=== PATIENT | female | born 1980 | race Asian ===

== ENCOUNTER → 2016-04-14 | Outpatient (CLI) | payer OTHER ==
[~2016-04-14] MED LIST: METHACHOLINE KIT (J7674) INH ONE
== END ==
LOC: M CARPUL 12:44
PROVIDERS: ATTEND Physician Assistant
DX: R06.00 Dyspnea, unspecified (principal)

== ENCOUNTER 2016-05-21 11:59 | Emergency (ER) | payer OTHER ==
[2016-05-21] MEDS ORDERED: NORCO, ANEXSIA 5/325MG TABLET (HYDROcodone/ACETAMINOPHEN) As Ordered ONE (12:48)
--- NOTE | 2016-05-21 12:59 | EDDOCDS ---
Physician Documentation [facility] Name: Taylor Perez Age: 35 yrs Sex: Female : 1980 Arrival Date: 05/21/2016 Time: 11:59 Bed TR8 Private MD: CEDRIC Avery Disposition: 05/21/16 12:43 Discharged to Home/Self Care. Impression: Influenza due to unidentified influenza virus. - Condition is Stable. - Discharge Instructions: Influenza Adult. - Medication Reconciliation form. - Follow up: CEDRIC Avery; When: 2 - 3 days; Reason: Wound/Symptom Recheck, Recheck today's complaints, Worsening of conditions, Continuance of care. - Problem is new. - Symptoms are unchanged. - Notes: Please take your vicodin as discussed. Historical: - Allergies: Ambiensleep walks; meloxicammakes her hyper; Plaquenilworsened the pain; No TB Shot; stone fruit; environmental allergies; - Home Meds: 1. pregabalin 200 mg Oral cap 1 cap 3 times per day 2. Diovan HCT 80-12.5 mg Oral tab 3. montelukast 10 mg oral tab 1 tab once daily 4. Claritin 10 mg Oral tab 1 tab once daily 5. metformin 500 mg Oral tab 1 tab QD for Polycystic Ovarian Syndrome 6. control 7. Advair Diskus 230 Inhl 2 puff 2 times per day 8. tramadol 50 mg Oral tab 1 tab prn (Last dose: 05/20/2016) 9. Tylenol 325 mg oral tab 1 tab prn 10. amitriptyline 100 mg Oral tab 1 tab once daily 11. epi pen as needed 12. ProAir HFA 90 mcg/actuation inhalation HFAA 2 puffs as needed 13. Nasonex 50 mcg/actuation Nasal spry 2 sprays as needed 14. Motrin 800 mg Oral tab 1 tab as needed 15. meclizine 25 mg Oral tab as needed 16. Patanol 0.1 % Opht drop 1 drop as needed 17. valacyclovir 1 gram Oral tab 1 tab once daily prn 18. Vitamin D Oral 1000 unit daily 19. Lidoderm 5 %(700 mg/patch) Topical ptmd 1 patch as needed 20. ranitidine HCl 150 mg Oral cap once daily - PMHx: Asthma; Arthritis; Environmental allergies; Fibromyalgia; genital herpes; Hypertension; insomnia; Migraine Headaches; PCOS; Tuberculosis; Vertigo; GERD; - PSHx: right shoulder; Carpal Tunnel Repair- Right; wisdom teeth; Carpal Tunnel Repair- Left; - Social history: Smoking status: Patient states former smoker of tobacco. No barriers to communication noted, The patient speaks fluent French, Speaks appropriately for age. - Family history: Not pertinent. - : The pt / caregiver states he / she is not on anticoagulants. Home medication list is obtained from the patient. - Exposure Risk Screening:: None identified. 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 Vital Signs: 12:00 BP 158 / 91; Pulse 93; Resp 18; Temp 98.0(T); Pulse Ox 99% on R/A; Weight 83.91 kg / dem1 184.99 lbs (R); Height 5 ft. 2 in. (157.48 cm); 12:17 BP 148 / 96 RA Sitting (man/lg); jb5 12:00 Body Mass Index 33.84 (83.91 kg, 157.48 cm) dem1 MDM: 12:37 Financial registration complete. lg 12:43 HYDROcodone-acetaminophen 5 mg-325 mg 1 tabs PO once ordered. cc10 12:52 [facility] Payment Agreement was scanned into [employer] and attached to record. lg Administered Medications: 12:50 Drug: HYDROcodone-acetaminophen 1 tabs [hydrocodone 5 mg-acetaminophen 325 mg tablet (1 srm tabs)] Route: PO; Signatures: Heather Olivas RN RN srm Wendy Boyce, Jaciel Grissom Felipe Crooks PA-C PA-C cc10 The chart was reviewed and I authenticate all verbal orders and agree with the evaluation and treatment provided.Attachments: 12:52 [facility] Payment Agreement lg MTDD
--- NOTE | 2016-05-21 12:59 | EDDOCDS ---
Nurse's Notes [facility] Name: Taylor Perez Age: 35 yrs Sex: Female : 1980 Arrival Date: 05/21/2016 Time: 11:59 Bed TR8 Private MD: Gena [facility] Diagnosis: Influenza due to unidentified influenza virus Presentation: 05/21 12:02 Presenting complaint: Patient states: feel weak started about 20 mins ago. got hot srm flashes and heating up then entire body started hurting. diarrhea this am before these symptoms started. Adult Sepsis Screening: The patient does not have new or worsening altered mentation. Patient's respiratory rate is less than 22. Systolic blood pressure is greater than 100. Patient has a qSOFA score of 0- Negative Sepsis Screen. Suicide/Homicide risk assessment- the patient denies having any suicidal and/or homicidal ideations and does not present with any other emotional, behavioral or mental health complaints. Status: The patient is a dependent. Transition of care: patient was not received from another setting of care. 12:02 Acuity: HAL Level 3 srm 12:02 Method Of Arrival: Walkin/Carried/Asstd srm Triage Assessment: 12:09 General: Appears in no apparent distress, Behavior is appropriate for age, cooperative. srm Pain: Pain currently is 8 out of 10 on a pain scale. HIV screening NA for this visit Offered previously. 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 pregabalin 200 mg Oral cap 1 cap 3 times per day 2. Diovan HCT 80-12.5 mg Oral tab 3. montelukast 10 mg oral tab 1 tab once daily 4. Claritin 10 mg Oral tab 1 tab once daily 5. metformin 500 mg Oral tab 1 tab QD for Polycystic Ovarian Syndrome 6. control 7. Advair Diskus 230 Inhl 2 puff 2 times per day 8. tramadol 50 mg Oral tab 1 tab prn (Last dose: 05/20/2016) 9. Tylenol 325 mg oral tab 1 tab prn 10. amitriptyline 100 mg Oral tab 1 tab once daily 11. epi pen as needed 12. ProAir HFA 90 mcg/actuation inhalation HFAA 2 puffs as needed 13. Nasonex 50 mcg/actuation Nasal spry 2 sprays as needed 14. Motrin 800 mg Oral tab 1 tab as needed 15. meclizine 25 mg Oral tab as needed 16. Patanol 0.1 % Opht drop 1 drop as needed 17. valacyclovir 1 gram Oral tab 1 tab once daily prn 18. Vitamin D Oral 1000 unit daily 19. Lidoderm 5 %(700 mg/patch) Topical ptmd 1 patch as needed 20. ranitidine HCl 150 mg Oral cap once daily - PMHx: Asthma; Arthritis; Environmental allergies; Fibromyalgia; genital herpes; Hypertension; insomnia; Migraine Headaches; PCOS; Tuberculosis; Vertigo; GERD; - PSHx: right shoulder; Carpal Tunnel Repair- Right; wisdom teeth; Carpal Tunnel Repair- Left; - Social history: Smoking status: Patient states former smoker of tobacco. No barriers to communication noted, The patient speaks fluent Romansh, Speaks appropriately for age. - Family history: Not pertinent. - : The pt / caregiver states he / she is not on anticoagulants. Home medication list is obtained from the patient. - Exposure Risk Screening:: None identified. Screenin:55 Screening information is obtained from the patient. Fall risk: No risks identified. srm Assistance ADL's: requires no assistance with activities of daily living. Abuse/DV Screen: The patient / caregiver reports he/she is: not in a situation that causes fear, pain or injury. Nutritional screening: No deficits noted. Advance Directives: There is no active DNR order. home support is adequate. Assessment: 12:55 General: Appears in no apparent distress, Behavior is appropriate for age, cooperative. srm General: achey all over. Neurological: No deficits noted. Respiratory: No deficits noted. Derm: No deficits noted. Vital Signs: 12:00 BP 158 / 91; Pulse 93; Resp 18; Temp 98.0(T); Pulse Ox 99% on R/A; Weight 83.91 kg (R); dem1 Height 5 ft. 2 in. (157.48 cm); 12:17 BP 148 / 96 RA Sitting (man/lg); jb5 12:00 Body Mass Index 33.84 (83.91 kg, 157.48 cm) dem1 Vitals: 12:00 Log In Time: May 21, 2016 at 11:58. dem1 ED Course: 12:00 Patient visited by Perla Moreno. dem1 12:00 Gena [facility] is Private Physician. dem1 12:00 Patient moved to Waiting dem1 12:02 Patient visited by Perla Moreno. dem1 12:02 Patient moved to Pre RCE dem1 12:04 Triage Initiated srm 12:16 Patient moved to Triage 1 srm 12:17 Patient visited by Brianna Hathaway PCA. jb5 12:35 Felipe Crooks PA-C is PHCP. cc10 12:35 Marcos Charlton MD is Attending Physician. cc10 12:35 Patient visited by Felipe Crooks PA-C. cc10 12:35 Patient visited by Felipe Crooks PA-C. cc10 12:43 Gena [facility] is Referral Physician. cc10 12:52 [facility] Payment Agreement was scanned into [employer] and attached to record. lg 12:55 Patient moved to TR8 [facility] 12:55 The patient / caregiver is instructed regarding the plan of care and ED course. srm Accompanied by Significant Other, Patient has correct armband on for positive identification. 12:55 No IV's were initiated during this patient's visit. No procedures done that require srm assistance. Administered Medications: 12:50 Drug: HYDROcodone-acetaminophen 1 tabs [hydrocodone 5 mg-acetaminophen 325 mg tablet (1 srm tabs)] Route: PO; Order Results: There are currently no results for this order. Outcome: 12:43 Discharge ordered by Provider. cc10 12:55 Discharge Assessment: patient administered narcotics - no. The following High Risk srm Discharge criteria are identified: None. Discharged to home ambulatory, with significant other. Condition: good Condition: stable. Discharge instructions given to patient, Instructed on discharge instructions, follow up and referral plans. medication usage, Demonstrated understanding of instructions, medications, Pt was receptive of discharge instructions/ teaching. No special radiology studies were completed. Property sent home with patient. 12:58 Patient left the ED. srm Signatures: Heather Olivas, RN RN srm Wendy Boyce, Reg Reg lg Brianna Hathaway PCA WORKFORCE PLANNING ANALYST jb5 Perla Moreno dem1 [place], Felipe, PA-C PA-C cc10 MTDD
--- NOTE | 2016-05-23 13:59 | EDDOCDS ---
Physician Documentation [facility] Name: Taylor Perez Age: 35 yrs Sex: Female : 1980 Arrival Date: 05/21/2016 Time: 11:59 Bed TR8 Private MD: CEDRIC Avery Disposition: 05/21/16 12:43 Discharged to Home/Self Care. Impression: Influenza due to unidentified influenza virus. - Condition is Stable. - Discharge Instructions: Influenza Adult. - Medication Reconciliation form. - Follow up: CEDRIC Avery; When: 2 - 3 days; Reason: Wound/Symptom Recheck, Recheck today's complaints, Worsening of conditions, Continuance of care. - Problem is new. - Symptoms are unchanged. - Notes: Please take your vicodin as discussed. Historical: - Allergies: Ambiensleep walks; meloxicammakes her hyper; Plaquenilworsened the pain; No TB Shot; stone fruit; environmental allergies; - Home Meds: 1. pregabalin 200 mg Oral cap 1 cap 3 times per day 2. Diovan HCT 80-12.5 mg Oral tab 3. montelukast 10 mg oral tab 1 tab once daily 4. Claritin 10 mg Oral tab 1 tab once daily 5. metformin 500 mg Oral tab 1 tab QD for Polycystic Ovarian Syndrome 6. control 7. Advair Diskus 230 Inhl 2 puff 2 times per day 8. tramadol 50 mg Oral tab 1 tab prn (Last dose: 05/20/2016) 9. Tylenol 325 mg oral tab 1 tab prn 10. amitriptyline 100 mg Oral tab 1 tab once daily 11. epi pen as needed 12. ProAir HFA 90 mcg/actuation inhalation HFAA 2 puffs as needed 13. Nasonex 50 mcg/actuation Nasal spry 2 sprays as needed 14. Motrin 800 mg Oral tab 1 tab as needed 15. meclizine 25 mg Oral tab as needed 16. Patanol 0.1 % Opht drop 1 drop as needed 17. valacyclovir 1 gram Oral tab 1 tab once daily prn 18. Vitamin D Oral 1000 unit daily 19. Lidoderm 5 %(700 mg/patch) Topical ptmd 1 patch as needed 20. ranitidine HCl 150 mg Oral cap once daily - PMHx: Asthma; Arthritis; Environmental allergies; Fibromyalgia; genital herpes; Hypertension; insomnia; Migraine Headaches; PCOS; Tuberculosis; Vertigo; GERD; - PSHx: right shoulder; Carpal Tunnel Repair- Right; wisdom teeth; Carpal Tunnel Repair- Left; - Social history: Smoking status: Patient states former smoker of tobacco. No barriers to communication noted, The patient speaks fluent Greek, Speaks appropriately for age. - Family history: Not pertinent. - : The pt / caregiver states he / she is not on anticoagulants. Home medication list is obtained from the patient. - Exposure Risk Screening:: None identified. 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 2 in. (157.48 cm); 12:17 BP 148 / 96 RA Sitting (man/lg); jb5 12:00 Body Mass Index 33.84 (83.91 kg, 157.48 cm) dem1 MDM: 12:37 Financial registration complete. lg 12:43 HYDROcodone-acetaminophen 5 mg-325 mg 1 tabs PO once ordered. cc10 12:52 [facility] Payment Agreement was scanned into [employer] and attached to record. lg 17:57 T-Sheet-- Draft Copy was scanned into [employer] and attached to record. klr Administered Medications: 12:50 Drug: HYDROcodone-acetaminophen 1 tabs [hydrocodone 5 mg-acetaminophen 325 mg tablet (1 srm tabs)] Route: PO; Signatures: Heather Olivas RN RN srm Wendy Boyce, Jaciel Reg lg Felipe Crooks PA-C PA-C cc10 Keara Zarate klr The chart was reviewed and I authenticate all verbal orders and agree with the evaluation and treatment provided.Attachments: 12:52 [facility] [place] Agreement lg 17:57 T-Sheet-- Draft Copy klr Chart Complete MTDD
--- NOTE | 2016-05-23 13:59 | EDDOCDS ---
Physician Documentation [facility] Name: Taylor Perez Age: 35 yrs Sex: Female : 1980 Arrival Date: 05/21/2016 Time: 11:59 Bed TR8 Private MD: CEDRIC Aevry Disposition: 05/21/16 12:43 Discharged to Home/Self Care. Impression: Influenza due to unidentified influenza virus. - Condition is Stable. - Discharge Instructions: Influenza Adult. - Medication Reconciliation form. - Follow up: CEDRIC Avery; When: 2 - 3 days; Reason: Wound/Symptom Recheck, Recheck today's complaints, Worsening of conditions, Continuance of care. - Problem is new. - Symptoms are unchanged. - Notes: Please take your vicodin as discussed. Historical: - Allergies: Ambiensleep walks; meloxicammakes her hyper; Plaquenilworsened the pain; No TB Shot; stone fruit; environmental allergies; - Home Meds: 1. pregabalin 200 mg Oral cap 1 cap 3 times per day 2. Diovan HCT 80-12.5 mg Oral tab 3. montelukast 10 mg oral tab 1 tab once daily 4. Claritin 10 mg Oral tab 1 tab once daily 5. metformin 500 mg Oral tab 1 tab QD for Polycystic Ovarian Syndrome 6. control 7. Advair Diskus 230 Inhl 2 puff 2 times per day 8. tramadol 50 mg Oral tab 1 tab prn (Last dose: 05/20/2016) 9. Tylenol 325 mg oral tab 1 tab prn 10. amitriptyline 100 mg Oral tab 1 tab once daily 11. epi pen as needed 12. ProAir HFA 90 mcg/actuation inhalation HFAA 2 puffs as needed 13. Nasonex 50 mcg/actuation Nasal spry 2 sprays as needed 14. Motrin 800 mg Oral tab 1 tab as needed 15. meclizine 25 mg Oral tab as needed 16. Patanol 0.1 % Opht drop 1 drop as needed 17. valacyclovir 1 gram Oral tab 1 tab once daily prn 18. Vitamin D Oral 1000 unit daily 19. Lidoderm 5 %(700 mg/patch) Topical ptmd 1 patch as needed 20. ranitidine HCl 150 mg Oral cap once daily - PMHx: Asthma; Arthritis; Environmental allergies; Fibromyalgia; genital herpes; Hypertension; insomnia; Migraine Headaches; PCOS; Tuberculosis; Vertigo; GERD; - PSHx: right shoulder; Carpal Tunnel Repair- Right; wisdom teeth; Carpal Tunnel Repair- Left; - Social history: Smoking status: Patient states former smoker of tobacco. No barriers to communication noted, The patient speaks fluent Maldivian, Speaks appropriately for age. - Family history: Not pertinent. - : The pt / caregiver states he / she is not on anticoagulants. Home medication list is obtained from the patient. - Exposure Risk Screening:: None identified. 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 2 in. (157.48 cm); 12:17 BP 148 / 96 RA Sitting (man/lg); jb5 12:00 Body Mass Index 33.84 (83.91 kg, 157.48 cm) dem1 MDM: 12:37 Financial registration complete. lg 12:43 HYDROcodone-acetaminophen 5 mg-325 mg 1 tabs PO once ordered. cc10 12:52 [facility] Payment Agreement was scanned into [employer] and attached to record. lg 17:57 T-Sheet-- Draft Copy was scanned into [employer] and attached to record. klr Administered Medications: 12:50 Drug: HYDROcodone-acetaminophen 1 tabs [hydrocodone 5 mg-acetaminophen 325 mg tablet (1 srm tabs)] Route: PO; Signatures: Heather Olivas RN RN srm Wendy Boyce, Jaciel Reg lg Felipe Crooks PA-C PA-C cc10 Keara Zarate klr The chart was reviewed and I authenticate all verbal orders and agree with the evaluation and treatment provided.Attachments: 12:52 [facility] Payment Agreement lg 17:57 T-Sheet-- Draft Copy klr Chart Complete MTDD
--- NOTE | 2016-05-23 14:00 | EDDOCDS ---
Nurse's Notes [facility] Name: Taylor Perez Age: 35 yrs Sex: Female : 1980 Arrival Date: 05/21/2016 Time: 11:59 Bed TR8 Private MD: Gena [facility] Diagnosis: Influenza due to unidentified influenza virus Presentation: 05/21 12:02 Presenting complaint: Patient states: feel weak started about 20 mins ago. got hot srm flashes and heating up then entire body started hurting. diarrhea this am before these symptoms started. Adult Sepsis Screening: The patient does not have new or worsening altered mentation. Patient's respiratory rate is less than 22. Systolic blood pressure is greater than 100. Patient has a qSOFA score of 0- Negative Sepsis Screen. Suicide/Homicide risk assessment- the patient denies having any suicidal and/or homicidal ideations and does not present with any other emotional, behavioral or mental health complaints. Status: The patient is a dependent. Transition of care: patient was not received from another setting of care. 12:02 Acuity: HAL Level 3 srm 12:02 Method Of Arrival: Walkin/Carried/Asstd srm Triage Assessment: 12:09 General: Appears in no apparent distress, Behavior is appropriate for age, cooperative. srm Pain: Pain currently is 8 out of 10 on a pain scale. HIV screening NA for this visit Offered previously. 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 pregabalin 200 mg Oral cap 1 cap 3 times per day 2. Diovan HCT 80-12.5 mg Oral tab 3. montelukast 10 mg oral tab 1 tab once daily 4. Claritin 10 mg Oral tab 1 tab once daily 5. metformin 500 mg Oral tab 1 tab QD for Polycystic Ovarian Syndrome 6. control 7. Advair Diskus 230 Inhl 2 puff 2 times per day 8. tramadol 50 mg Oral tab 1 tab prn (Last dose: 05/20/2016) 9. Tylenol 325 mg oral tab 1 tab prn 10. amitriptyline 100 mg Oral tab 1 tab once daily 11. epi pen as needed 12. ProAir HFA 90 mcg/actuation inhalation HFAA 2 puffs as needed 13. Nasonex 50 mcg/actuation Nasal spry 2 sprays as needed 14. Motrin 800 mg Oral tab 1 tab as needed 15. meclizine 25 mg Oral tab as needed 16. Patanol 0.1 % Opht drop 1 drop as needed 17. valacyclovir 1 gram Oral tab 1 tab once daily prn 18. Vitamin D Oral 1000 unit daily 19. Lidoderm 5 %(700 mg/patch) Topical ptmd 1 patch as needed 20. ranitidine HCl 150 mg Oral cap once daily - PMHx: Asthma; Arthritis; Environmental allergies; Fibromyalgia; genital herpes; Hypertension; insomnia; Migraine Headaches; PCOS; Tuberculosis; Vertigo; GERD; - PSHx: right shoulder; Carpal Tunnel Repair- Right; wisdom teeth; Carpal Tunnel Repair- Left; - Social history: Smoking status: Patient states former smoker of tobacco. No barriers to communication noted, The patient speaks fluent Faroese, Speaks appropriately for age. - Family history: Not pertinent. - : The pt / caregiver states he / she is not on anticoagulants. Home medication list is obtained from the patient. - Exposure Risk Screening:: None identified. Screenin:55 Screening information is obtained from the patient. Fall risk: No risks identified. srm Assistance ADL's: requires no assistance with activities of daily living. Abuse/DV Screen: The patient / caregiver reports he/she is: not in a situation that causes fear, pain or injury. Nutritional screening: No deficits noted. Advance Directives: There is no active DNR order. home support is adequate. Assessment: 12:55 General: Appears in no apparent distress, Behavior is appropriate for age, cooperative. srm General: achey all over. Neurological: No deficits noted. Respiratory: No deficits noted. Derm: No deficits noted. Vital Signs: 12:00 BP 158 / 91; Pulse 93; Resp 18; Temp 98.0(T); Pulse Ox 99% on R/A; Weight 83.91 kg (R); dem1 Height 5 ft. 2 in. (157.48 cm); 12:17 BP 148 / 96 RA Sitting (man/lg); jb5 12:00 Body Mass Index 33.84 (83.91 kg, 157.48 cm) dem1 Vitals: 12:00 Log In Time: May 21, 2016 at 11:58. dem1 ED Course: 12:00 Patient visited by Perla Moreno. dem1 12:00 Gena [facility] is Private Physician. dem1 12:00 Patient moved to Waiting dem1 12:02 Patient visited by Perla Moreno. dem1 12:02 Patient moved to Pre RCE dem1 12:04 Triage Initiated srm 12:16 Patient moved to Triage 1 srm 12:17 Patient visited by Brianna Hathaway PCA. jb5 12:35 Felipe Crooks PA-C is PHCP. cc10 12:35 Marcos Charlton MD is Attending Physician. cc10 12:35 Patient visited by Felipe Crooks PA-C. cc10 12:35 Patient visited by Felipe Crooks PA-C. cc10 12:43 Gena [facility] is Referral Physician. cc10 12:52 [facility] Payment Agreement was scanned into [employer] and attached to record. lg 12:55 Patient moved to TR8 [facility] 12:55 The patient / caregiver is instructed regarding the plan of care and ED course. srm Accompanied by Significant Other, Patient has correct armband on for positive identification. 12:55 No IV's were initiated during this patient's visit. No procedures done that require srm assistance. 17:57 T-Sheet-- Draft Copy was scanned into [employer] and attached to record. klr Administered Medications: 12:50 Drug: HYDROcodone-acetaminophen 1 tabs [hydrocodone 5 mg-acetaminophen 325 mg tablet (1 srm tabs)] Route: PO; Order Results: There are currently no results for this order. Outcome: 12:43 Discharge ordered by Provider. cc10 12:55 Discharge Assessment: patient administered narcotics - no. The following High Risk srm Discharge criteria are identified: None. Discharged to home ambulatory, with significant other. Condition: good Condition: stable. Discharge instructions given to patient, Instructed on discharge instructions, follow up and referral plans. medication usage, Demonstrated understanding of instructions, medications, Pt was receptive of discharge instructions/ teaching. No special radiology studies were completed. Property sent home with patient. 12:58 Patient left the ED. srm Signatures: Heather Olivas, RN RN srm Wendy Boyce, Reg Reg Brianna Hathaway PCA UNDERGRADUATE INTERN jb5 Perla Moreno dem1 Felipe Crooks, PA-C PA-C cc10 Keara Zarate Chart Complete MTDD
== END 2016-05-21 12:58 | disposition home or self-care (01) ==
LOC: M ED 11:59
DX: B34.9 Viral infection, unspecified (principal); I10 Essential (primary) hypertension; J45.909 Unspecified asthma, uncomplicated; M19.90 Unspecified osteoarthritis, unspecified site; M79.7 Fibromyalgia; G47.00 Insomnia, unspecified; G43.909 Migraine, unspecified, not intractable, without status migrainosus; E28.2 Polycystic ovarian syndrome; K21.9 Gastro-esophageal reflux disease without esophagitis; A60.09 Herpesviral infection of other urogenital tract; Z87.09 Personal history of other diseases of the respiratory system; Z86.69 Personal history of other diseases of the nervous system and sense organs; Z79.899 Other long term (current) drug therapy; Z79.51 Long term (current) use of inhaled steroids; Z88.6 Allergy status to analgesic agent; Z88.8 Allergy status to other drugs, medicaments and biological substances; Z91.018 Allergy to other foods; Z87.891 Personal history of nicotine dependence

== ENCOUNTER 2018-02-10 14:18 | Emergency (ER) | payer OTHER ==
[2018-02-10 16:31] LABS: BASO # 0.1 10^3/uL (0.0-0.2); BASO % 0.5 % (0.0-1.0); EOS # 0.2 10^3/uL (0.0-0.50); EOS % 1.3 % (0.0-3.0); HEMATOCRIT 40.5 % (36.0-47.0); HEMOGLOBIN 13.3 g/dl (12.0-15.5); IMMATURE GRANULOCYTE % 0.5 % (0-3.0); LYMPH # 2.5 10^3/uL (1.5-4.5); LYMPH % 20.5 % (24.0-44.0); MEAN CORPUSCULAR HGB CONC 32.8 g/dl (32.0-36.5); MEAN CORPUSCULAR VOLUME 79.1 fl (80.0-96.0); MONO # 0.6 10^3/uL (0.0-0.8); MONO % 4.5 % (0.0-5.0); NEUTROPHILS # 8.9 10^3/uL (1.8-7.7); NEUTROPHILS % 72.7 % (36.0-66.0); PLATELET COUNT, AUTOMATED 392 10^3/uL (150-450); RED BLOOD COUNT 5.12 10^6/uL (4.00-5.40); RED CELL DISTRIBUTION WIDTH 14.3 % (11.5-14.5); WHITE BLOOD COUNT 12.2 10^3/uL (4.0-10.0)
[2018-02-10 16:57] LABS: ANION GAP 9 MEQ/L (8-16); BLOOD UREA NITROGEN 12 MG/DL (7-18); CALCIUM LEVEL 9.2 MG/DL (8.5-10.1); CARBON DIOXIDE LEVEL 29 MEQ/L (21-32); CHLORIDE LEVEL 99 MEQ/L (98-107); CK-MB VALUE MASS < 1.0 NG/ML (<3.6); CPK CREATINE PHOSPHOKINASE 133 U/L (26-192); CREATININE FOR GFR 0.76 MG/DL (0.55-1.30); GLOMERULAR FILTRATION RATE > 60.0 (>60); GLUCOSE, FASTING 93 MG/DL (70-100); MB/CK RELATIVE INDEX 0.75 (< OR =4); POTASSIUM SERUM 3.5 MEQ/L (3.5-5.1); SODIUM LEVEL 137 MEQ/L (136-145)
[2018-02-10 17:24] LABS: D-DIMER QUANT < 270.0 ng/ml (<500)
[2018-02-10 17:27] LABS: TROPONIN I < 0.02 NG/ML (< 0.10)
== END 2018-02-10 17:47 | disposition home or self-care (01) ==
LOC: M ED 14:18
DX: M79.7 Fibromyalgia (principal); R07.89 Other chest pain; I10 Essential (primary) hypertension; J45.909 Unspecified asthma, uncomplicated; Z79.899 Other long term (current) drug therapy; Z79.84 Long term (current) use of oral hypoglycemic drugs; Z79.3 Long term (current) use of hormonal contraceptives; Z88.5 Allergy status to narcotic agent; Z91.018 Allergy to other foods
CPT/HCPCS: 71046